=== PATIENT | female | born 1955 | race Caucasian/White ===

== ENCOUNTER 2022-04-06 12:05 | Emergency (ER) | payer OTHER, SELFPAY ==
--- NOTE | ~2022-04-06 | CT_ITS ---
EXAMINATION: CT brain wo con, CT facial bones wo con DATE: 04/06/2022 13:47 INDICATION: Increasing headache and blurred vision. Left upper molar toothache. TECHNIQUE: 1. Computed tomography (CT) of the head was performed without intravenous contrast. Sagittal and amy nal reconstructions were performed. The mA was adjusted according to patient size. Iterative reconstr uction technique was employed. The dose-length product was 605.33 mGy-cm. 2. CT of the maxillofacial bones was performed without intravenous contrast. Sagittal and coronal rec onstructions were performed. Automated exposure control and iterative reconstruction technique were e mployed. The dose-length product was 297.01 mGy-cm. COMPARISON: None FINDINGS: Head: No acute intracranial hemorrhage, acute infarction or abnormal extra axial fluid collection. There is mild scattered white matter hypoattenuation consistent with chronic small vessel ischemic disease. S ymmetric prominence of the sulci consistent with mild age-appropriate diffuse cerebral volume loss. V entricles are normal and symmetric. No mass/mass effect. Mastoid air cells and middle ear cavities ar e clear. Maxillofacial bones: Orbits are normal. Temporomandibular joints are normal alignment with mild bilateral osteoarthritis. No maxillofacial fractures. Paranasal sinuses are clear. Nasal septum is midline. Dental disease with multiple absent teeth and multiple dental restorations. Large dental Keeley involving the right first bicuspid (tooth #5) with associated small periapical lucency. 1.3 x 1.0 x 0.6 cm cystic lesion witho ut surrounding from trace stranding to suggest abscess in the superficial subcutaneous tissues in the right malar region most likely small epidermoid cyst. No lesion suspicious for abscess or cellulitis . No pathologically enlarged facial or upper cervical lymphadenopathy. Bilateral parotid and submandi bular glands are normal. Advanced cervical spondylosis. IMPRESSION: 1. Mild scattered white matter hypoattenuation consistent with chronic small vessel ischemic disease. No acute intracranial process. 2. Extensive dental disease with large dental Keeley associated periapical erosion at the right maxill tayler first premolar. Reviewed, dictated and finalized at location A. IMPRESSION: 1. Mild scattered white matter hypoattenuation consistent with chronic small ve ssel ischemic disease. No acute intracranial process. 2. Extensive dental disease with large dental Keeley associated periapical erosi on at the right maxillary first premolar.
[2022-04-06 13:07] VITALS: BP 141/66; PULSE 84; RESP 20; TEMP 36.7; O2SAT 99
[2022-04-06] MEDS: ACETAMINOPHEN 325 MG TABLET 650 MG PO (13:54)
[2022-04-06] MEDS: cefTRIAXone 1 GM, LIDOCAINE HCL 1% LOCAL INJ 2.1 ML IM (13:55)
--- NOTE | 2022-04-06 14:53 | ED.DENTAL ---
HPI - Dental/Oral General Chief complaint: Dental/Oral Stated complaint: tooth pain, vision changes Time Seen by Provider: 04/06/22 12:09 Source: patient and RN notes reviewed Mode of arrival: ambulatory Limitations: no limitations History of Present Illness Complaint: tooth pain Onset (ago): day(s) (2) Duration: constant Severity: moderate Severity scale (1-10): 6 Relieving factors: NSAIDs Exacerbating factors: chewing Context: history of dental caries Treatment prior to arrival: none Related Data Allergies Allergy/AdvReac Type Severity Reaction Status Date / Time No Known Allergies Allergy Verified 04/06/22 13:21 Review of Systems Review of Systems: All systems reviewed & are unremarkable except as noted in HPI and below Constitutional: Constitutional: Reports no additional constitutional complaints Eyes: Eyes: Reports no additional eye complaints ENT: Reports system reviewed and no additional complaints, except as documented Comments: toothache Cardiovascular: Cardiovascular: Reports no additional cardiovascular complaints Respiratory: Respiratory: Reports no additional respiratory complaints Gastrointestinal: Gastrointestinal: Reports no additional gastrointestinal complaints Genitourinary: Genitourinary: Reports no additional female genitourinary complaints Musculoskeletal: Musculoskeletal: Reports no additional musculoskeletal complaints Integumentary/Breasts: Skin/Breast: Reports system reviewed and no additional complaints, except as docu Neurologic: Reports system reviewed and no additional complaints, except as documented Psychiatric: Psychiatric: Reports no additional psychiatric complaints Endocrine: Endocrine: Reports no additional endocrine complaints Hematologic/Lymphatic: Hematologic/Lymphatic: Reports no additional hematologic/lymphatic complaints Allergic/Immunologic: Allergic/Immunologic: Reports no additional allergic/immunologic complaints PMFSH Past Medical History Medical History (Updated 04/29/22 @ 07:26 by Deepa Diaz MD) Toothache Exam Const: General: healthy appearing and no acute distress Nutritional Appearance: well nourished Orientation/consciousness: patient oriented x3 Limitations: no limitations HENMT: Head: normal to inspection Ears: external ears normal, TM's normal bilaterally and EAC's normal General nose exam: Normal external nose present and Normal nares present Face and sinus: normal facial exam and sinuses nontender Mouth: Yes Normal oral and palatal mucosa present and Yes moist mucous membranes Teeth and gingiva: abnormal tooth and associated gingiva (multiple carious teeth with right upper molar minimal tenderness. no pus) Throat: posterior oropharynx normal Eyes: Conjunctivae: conjunctivae normal Pupils: Equal, round and reactive pupils present EOM: EOMs intact bilaterally Neck: Neck: normal visual inspection, no lymphadenopathy and no meningeal signs Chest: Chest palpation & inspection: normal inspection of the chest Resp: Effort & Inspection: normal respiratory effort Auscultation: clear to auscultation bilaterally Cardio: Rate: regular rate Rhythm: regular rhythm GI: GI Palp: Yes Soft to palpation and No Tenderness to palpation present (GI) Auscultation: normal bowel sounds : General: Yes bladder normal to palpation and Yes no CVA tenderness Bimanual exam- vagina & uterus: bladder normal to palpation Back/Spine/Pelvis: Back: no CVA tenderness Skin: General skin exam: normal color Rashes: no rashes Wounds: no wounds Neuro: General: patient oriented x3, moves all extremities, no meningeal signs, no focal motor deficits and CN's II-XI intact bilaterally Cranial nerves: Yes Equal, round and reactive pupils present and Yes Nystagmus not present Speech: normal speech Gait exam (Neuro): Normal gait present Extrem: General: normal to inspection and no pedal edema Psych: Mental Status: mental status grossly normal Aff
[2022-04-06 15:20] VITALS: BP 121/67; PULSE 75; RESP 20; TEMP 36.6; O2SAT 97
== END 2022-04-06 15:20 | disposition home or self-care (01) ==
PROVIDERS: Emergency Provider Emergency Medicine
DX: K08.89 Other specified disorders of teeth and supporting structures (principal); K02.9 Dental caries, unspecified
CPT/HCPCS: 70450; 70486; 96372; 99284; A9270; J0696